=== PATIENT | male | born 1945 | race Caucasian/White ===

== ENCOUNTER 2017-10-20 15:00 | Emergency (ER) | payer MEDICARE, OTHER, MEDICAID ==
[2017-10-20] MEDS ORDERED: ONDANSETRON 4 MG INJ (16:32)
[2017-10-20] MEDS ORDERED: morphine 4 MG/ML VIAL (16:33)
[2017-10-20] MEDS: ONDANSETRON 4 MG INJ IV (17:24)
[2017-10-20] MEDS: morphine 4 MG/ML VIAL IV (17:24)
== END 2017-10-20 19:03 | disposition home or self-care (01) ==
LOC: E/R 15:00
DX: S42.211A Unspecified displaced fracture of surgical neck of right humerus, initial encounter for closed fracture (principal); E11.9 Type 2 diabetes mellitus without complications; I10 Essential (primary) hypertension; W18.39XA Other fall on same level, initial encounter; Y92.009 Unspecified place in unspecified non-institutional (private) residence as the place of occurrence of the external cause
CPT/HCPCS: 29105; 73030-RT; 73060-RT; 73070; 73090-RT; 96374; 96375; 99284-25